=== PATIENT | female | born 1955 | race Caucasian/White ===

== ENCOUNTER → 2021-03-28 | Outpatient (CLI) | payer BC ==
[~2021-03-28] MED LIST: LISINOPRIL5 MG PO; LOW DOSE ASPIRI81 MG PO; METOPROLOL TART25 MG PO; SYNTHROID 125125 MCG PO; VITAMIN D250000 UNIT PO
== END ==
LOC: HEART 5 15:30
DX: I49.3 Ventricular premature depolarization (principal); R55 Syncope and collapse; R00.2 Palpitations

== ENCOUNTER → 2021-08-13 | Outpatient (CLI) | payer BC | LOC: HEART 5 15:27 | DX: R06.02 Shortness of breath (principal); I10 Essential (primary) hypertension | CPT/HCPCS: 93306 ==